=== PATIENT | male | born 1945 | race Caucasian/White ===

== ENCOUNTER 2020-08-26 13:08 | Observation (INO) ==
[2020-08-26 14:08] LABS: Basophils # 0.1 10*3/uL (0.0-0.2); Basophils % 0.3 % (0.0-0.8); Eosinophils % 0.1 % (0.00-10.9); Hematocrit 52.5 VOL% (42.0-52.0); Hemoglobin 17.1 GM/DL (14.0-18.0); Immature Granulocytes % 0.5 %; Immature Granulocytes Absolute 0.09 #; Lymphocytes # 1.2 10*3/uL (1.4-4.0); Lymphocytes % 7.3 % (21.2-54.2); Mean Corpuscular HGB Conc 32.6 GM/DL (32-36); Mean Corpuscular Volume 89.7 FL (87-102); Mean Platelet Volume 9.1 FL (9.6-12.0); Monocytes % 7.2 % (1.7-12.7); Neutrophils % 84.6 % (38.7-73.9); Platelet Count 213 T/CUMM (130-400); Red Blood Count 5.85 MC/CUMM (3.8-5.5); Red Cell Distribution Width 12.4 % (9.3-17.3); White Blood Count 16.5 T/CUMM (4-12)
[2020-08-26 14:25] LABS: Bilirubin,Urine Negative (Negative); Blood, Urine Negative (Negative); Glucose,Urine (UA) >=500 mg/dL (Negative); Ketones,Urine 80 mg/dL (Negative); Mucus,Urine Occasional /LPF (Occasional); Nitrite,Urine Negative (Negative); Protein,Urine Negative; RBC,Urine <1 /HPF (0-4); Urine Appearance CLEAR (Clear); Urine Color Yellow (Yellow); Urine Specific Gravity 1.039 (1.001-1.035); Urine Urobilinogen < 2.0 EU/DL (0.2-1.0); WBC,Urine 1 /HPF (0-6)
[2020-08-26 14:30] LABS: Albumin 4.4 G/DL (3.4-5.0); Bilirubin,Total 0.8 MG/DL (0.2-1.0); Calcium 9.1 MG/DL (8.5-10.1); Osmolality,Calculated 278.7 MOS/KG (273-304); Potassium 4.4 MMOL/L (3.5-5.1); Total Protein 7.8 G/DL (6.4-8.2)
[2020-08-26] MEDS ORDERED: ONDANSETRON 4 MG/2 ML VIAL ONE (15:13)
[2020-08-26] MEDS ORDERED: MORPHINE 4 MG/1 ML VIAL IV STA (15:14)
[2020-08-26] MEDS ORDERED: ONDANSETRON 4 MG/2 ML VIAL IV ONE (15:14)
[2020-08-26] MEDS ORDERED: MORPHINE 4 MG/1 ML VIAL ONE (15:14)
[2020-08-26] MEDS ORDERED: PIPERACILLIN/TAZOBACTAM 3,375 MG in SODIUM CHLORIDE 0.9% 100 ML IV STA (15:14)
[2020-08-26] MEDS: LACTATED RINGERS 1,000 ML IV SCH ×3 (16:18→19:00)
[2020-08-26] MEDS ORDERED: LIDOCAINE 1% 20 ML VIAL ONE (16:43)
[2020-08-26] MEDS ORDERED: BUPIVACAINE MPF 0.25% 30 ML VIAL ONE (16:43)
[2020-08-26] MEDS ORDERED: PHENYLEPHRINE 1 MG/10 ML SYRINGE IV ONE (16:51)
[2020-08-26] MEDS ORDERED: ROCURONIUM 50 MG/5 ML VIAL IV ONE (16:51)
[2020-08-26] MEDS ORDERED: MIDAZOLAM 2 MG/2 ML VIAL ONE (16:51)
[2020-08-26] MEDS ORDERED: propofoL 200 MG/20 ML VIAL IV ONE (16:51)
[2020-08-26] MEDS ORDERED: LIDOCAINE 2% 5 ML VIAL ONE (16:51)
[2020-08-26] MEDS ORDERED: SUCCINYLCHOLINE 200 MG/10 ML VIAL ONE (16:51)
[2020-08-26] MEDS ORDERED: fentaNYL 100 MCG/2 ML VIAL ONE ×2 (16:51→17:35)
[2020-08-26] MEDS ORDERED: TISSUE ADHESIVE 1 EACH APPLICATOR TOP ONE (17:30)
[2020-08-26] MEDS ORDERED: ETOMIDATE 40 MG/20 ML VIAL IV ONE (17:34)
[2020-08-26] MEDS ORDERED: ONDANSETRON 4 MG/2 ML VIAL IV PRN (19:19)
[2020-08-26] MEDS ORDERED: HYDROmorphone 2 MG/1 ML VIAL IV PRN (19:19)
[2020-08-26] MEDS ORDERED: PROMETHAZINE 25 MG/1 ML VIAL IM PRN (19:19)
[2020-08-26] MEDS: KETOROLAC 15 MG/1 ML VIAL IV SCH (20:34)
[2020-08-27] MEDS: KETOROLAC 15 MG/1 ML VIAL IV SCH ×2 (01:10→08:29)
[2020-08-27] MEDS: LACTATED RINGERS 1,000 ML IV SCH ×2 (03:19→11:39)
[2020-08-27 08:11] VITALS: BP 118/59
[2020-08-27] MEDS ORDERED: ENOXAPARIN 40 MG/0.4 ML SYRINGE SUBCUT SCH (12:00)
== END 2020-08-27 11:50 | disposition home or self-care (01) ==
LOC: N.ED 13:08 → N.EDINP 13:08 → N.3E 18:34
PROVIDERS: ADMIT Surgery; ATTEND Surgery